=== PATIENT | female | born 1940 | race African-American/Black ===

== ENCOUNTER → 2016-09-30 | Outpatient (CLI) | payer OTHER, MEDICARE ==
[~2016-09-30] MED LIST: ASPEC81 PO; LORA-741 PO
[2016-09-30 09:10] LABS: HEMATOCRIT 43.7 % (37-47); MEAN CELL VOLUME 99.3 fL (80-100); MEAN CORPUSCULAR HEMOGLOBIN 31.8 pg (25-34); MEAN PLATELET VOLUME 11.9 fL (7.4-10.4); PLATELET COUNT 328 K/uL (130-400); WHITE BLOOD COUNT 6.51 K/uL (4.8-10.8)
[2016-09-30 09:26] LABS: ALT/SGPT 79 U/L (12-78); BLOOD UREA NITROGEN 24 mg/dl (7-18); BUN/CREATININE RATIO 23.7 (10-20); CARBON DIOXIDE 31 mmol/L (21-32); CHLORIDE 108 mmol/L (98-107); CHOLESTEROL 217 mg/dl (0-200); GLUCOSE 84 mg/dl (70-99); POTASSIUM 4.2 mmol/L (3.5-5.1); SODIUM 145 mmol/L (136-145); TRIGLYCERIDES 51 mg/dl (0-150); VERY LOW DENSITY LIPOPROT CALC 10 mg/dl
[2016-09-30 09:28] LABS: ALB/GLOB RATIO 0.9 (0.9-2); ALKALINE PHOSPHATASE 72 U/L (45-117); AST/SGOT 42 U/L (15-37); CHOLESTEROL/HDL RATIO 4.1; HDL CHOLESTEROL 53 mg/dl; LDL CHOLESTEROL CALCULATED 154 mg/dl
[2016-09-30 09:41] LABS: CALCIUM 9.4 mg/dl (8.5-10.1)
[2016-09-30 09:47] LABS: ESTIMATED AVERAGE GLUCOSE 131 mg/dl; HA1C FLAG Normal (Normal)
[2016-09-30 10:13] LABS: BASO % 0.3 %; BASO ABS # 0.02 K/uL (0-0.2); COMPLETE YES; ECHINOCYTES 1+; IG% 0.2 %; LYMPH % 53.9 %; LYMPH ABS # 3.51 K/uL (1.2-3.4); MONO % 9.1 %; NEUT % 30.5 %
== END | disposition home or self-care (01) ==
LOC: C.LABUPNIT 08:35
PROVIDERS: ATTEND Family Medicine
DX: E11.9 Type 2 diabetes mellitus without complications (principal); F02.81 Dementia in other diseases classified elsewhere, unspecified severity, with behavioral disturbance; F34.1 Dysthymic disorder

== ENCOUNTER → 2016-10-27 | Outpatient (CLI) | payer OTHER, MEDICARE ==
[2016-10-27 08:52] LABS: BASO % 0.3 %; BASO ABS # 0.02 K/uL (0-0.2); COMPLETE YES; EOS % 5.3 %; IG% 0.1 %; LYMPH % 49.3 %; LYMPH ABS # 3.41 K/uL (1.2-3.4); MEAN CELL VOLUME 96.1 fL (80-100); MEAN CORPUSCULAR HGB CONC 32.3 g/dl (32-36); MEAN PLATELET VOLUME 12.3 fL (7.4-10.4); MONO % 9.4 %; NEUT % 35.6 %; PLATELET COUNT 320 K/uL (130-400); RED BLOOD COUNT 4.06 M/uL (4.2-5.4); WHITE BLOOD COUNT 6.92 K/uL (4.8-10.8)
--- NOTE | 2016-10-29 12:20 | CODING QUERY NO DIAGNOSIS ---
TREATMENT RENDERED WITHOUT A DIAGNOSIS To promote full compliance with coding requirements relating to patient care, physician participation is requested in all cases of car stower uncertainty. Please assist us with providing a diagnosis/symptom for the test(s) below: A diagnosis/symptom was not documented on your Order. A valid diagnosis/symptom is required to bill all insurances. Please remember that we are unable to code a diagnosis of rule out, probable, possible, questionable, or suspected. Tests that require a diagnosis: DOS 10/27 * CBC DIAGNOSIS: * Uric Acid DIAGNOSIS: Provider Signature: Date: Thank you Ruth Ann Boyce Health Information Management Once completed, please kindly fax back to [phone] For questions please call [phone]
== END ==
LOC: C.LABUPNIT 08:39
PROVIDERS: ATTEND Family Medicine
DX: Z01.89 Encounter for other specified special examinations (principal)

== ENCOUNTER → 2016-12-31 | Outpatient (CLI) | payer OTHER, MEDICARE ==
[2016-12-31 09:16] LABS: ALT/SGPT 51 U/L (12-78); AST/SGOT 31 U/L (15-37); BLOOD UREA NITROGEN 18 mg/dl (7-18); BUN/CREATININE RATIO 18.8 (10-20); CALCIUM 9.2 mg/dl (8.5-10.1); CARBON DIOXIDE 26 mmol/L (21-32); CHLORIDE 109 mmol/L (98-107); CHOLESTEROL 197 mg/dl (0-200); CREATININE 0.93 mg/dl (0.60-1.20); GLUCOSE 77 mg/dl (70-99); SODIUM 141 mmol/L (136-145)
[2016-12-31 09:19] LABS: CHOLESTEROL/HDL RATIO 4.1; HDL CHOLESTEROL 48 mg/dl; LDL CHOLESTEROL CALCULATED 137 mg/dl; TRIGLYCERIDES 62 mg/dl (0-150); VERY LOW DENSITY LIPOPROT CALC 12 mg/dl
[2016-12-31 09:46] LABS: ESTIMATED AVERAGE GLUCOSE 123 mg/dl; HA1C FLAG Normal (Normal)
== END | disposition home or self-care (01) ==
LOC: C.LABUPNIT 08:48
PROVIDERS: ATTEND Nurse Practitioner Family
DX: E11.9 Type 2 diabetes mellitus without complications (principal)

== ENCOUNTER → 2017-05-13 | Outpatient (CLI) | payer OTHER, MEDICARE ==
[2017-05-13 08:46] LABS: BLOOD UREA NITROGEN 10 mg/dl (7-18); CALCIUM 8.7 mg/dl (8.5-10.1); CARBON DIOXIDE 25 mmol/L (21-32); CREATININE 0.74 mg/dl (0.60-1.20); GLUCOSE 87 mg/dl (70-99); POTASSIUM 3.1 mmol/L (3.5-5.1); SODIUM 140 mmol/L (136-145)
== END ==
LOC: C.LABUPNIT 08:17
PROVIDERS: ATTEND Nurse Practitioner Family
DX: E11.9 Type 2 diabetes mellitus without complications (principal); F33.8 Other recurrent depressive disorders

== ENCOUNTER → 2017-05-17 | Outpatient (CLI) | payer OTHER, MEDICARE | LOC: C.LAB 08:00 | PROVIDERS: ATTEND Nurse Practitioner Family | DX: E87.6 Hypokalemia (principal) ==

== ENCOUNTER → 2017-05-24 | Outpatient (CLI) | payer OTHER, MEDICARE | LOC: C.LABUPNIT 07:52 | PROVIDERS: ATTEND Nurse Practitioner Family | DX: E87.6 Hypokalemia (principal) ==

== ENCOUNTER → 2017-06-18 | Outpatient (CLI) | payer OTHER, MEDICARE ==
[2017-06-18 08:44] LABS: BLOOD UREA NITROGEN 12 mg/dl (7-18); CARBON DIOXIDE 25 mmol/L (21-32); CREATININE 0.79 mg/dl (0.60-1.20); GLUCOSE 85 mg/dl (70-99); POTASSIUM 4.1 mmol/L (3.5-5.1); SODIUM 138 mmol/L (136-145)
== END ==
LOC: C.LABUPNIT 08:21
PROVIDERS: ATTEND Nurse Practitioner Family
DX: Z01.89 Encounter for other specified special examinations (principal)

== ENCOUNTER → 2017-08-10 | Outpatient (CLI) | payer OTHER, MEDICARE ==
[2017-08-10 08:54] LABS: ALBUMIN 2.8 gm/dl (3.4-5.0); ALT/SGPT 151 U/L (12-78); AST/SGOT 85 U/L (15-37); BLOOD UREA NITROGEN 13 mg/dl (7-18); CALCIUM 8.9 mg/dl (8.5-10.1); CARBON DIOXIDE 25 mmol/L (21-32); CREATININE 0.85 mg/dl (0.60-1.20); GLUCOSE 81 mg/dl (70-99); SODIUM 141 mmol/L (136-145)
[2017-08-10 08:56] LABS: ALKALINE PHOSPHATASE 65 U/L (45-117); TOTAL PROTEIN 6.5 gm/dl (6.4-8.2)
[2017-08-10 09:29] LABS: HEMOGLOBIN A1C 6.2 % (4.5-5.6)
== END ==
LOC: C.LABUPNIT 07:53
PROVIDERS: ATTEND Nurse Practitioner Family
DX: E11.9 Type 2 diabetes mellitus without complications (principal); F02.81 Dementia in other diseases classified elsewhere, unspecified severity, with behavioral disturbance

== ENCOUNTER → 2017-08-18 | Outpatient (CLI) | payer OTHER, MEDICARE ==
[2017-08-18 08:57] LABS: ALT/SGPT 175 U/L (12-78); AST/SGOT 99 U/L (15-37)
== END ==
LOC: C.LABUPNIT 08:26
PROVIDERS: ATTEND Nurse Practitioner Family
DX: M62.81 Muscle weakness (generalized) (principal)

== ENCOUNTER → 2017-08-24 | Outpatient (CLI) | payer OTHER, MEDICARE ==
[2017-08-24 11:32] LABS: BLOOD UREA NITROGEN 14 mg/dl (7-18); CREATININE 0.88 mg/dl (0.60-1.20); GLUCOSE 65 mg/dl (70-99); POTASSIUM 4.1 mmol/L (3.5-5.1); SODIUM 139 mmol/L (136-145)
[2017-08-24 11:33] LABS: ALBUMIN 3.1 gm/dl (3.4-5.0); CALCIUM 9.1 mg/dl (8.5-10.1); CARBON DIOXIDE 24 mmol/L (21-32); TOTAL PROTEIN 6.8 gm/dl (6.4-8.2)
[2017-08-24 11:34] LABS: ALKALINE PHOSPHATASE 69 U/L (45-117); ALT/SGPT 96 U/L (12-78); AST/SGOT 52 U/L (15-37)
== END | disposition home or self-care (01) ==
LOC: C.LABUPNIT 09:14
PROVIDERS: ATTEND Nurse Practitioner Family
DX: E11.9 Type 2 diabetes mellitus without complications (principal)

== ENCOUNTER → 2017-11-10 | Outpatient (CLI) | payer OTHER, MEDICARE ==
[2017-11-10 10:09] LABS: BLOOD UREA NITROGEN 15 mg/dl (7-18); CALCIUM 8.6 mg/dl (8.5-10.1); CARBON DIOXIDE 24 mmol/L (21-32); CREATININE 0.91 mg/dl (0.60-1.20); GLUCOSE 72 mg/dl (70-99); POTASSIUM 3.9 mmol/L (3.5-5.1); SODIUM 140 mmol/L (136-145)
[2017-11-10 10:47] LABS: HEMOGLOBIN A1C 6.1 % (4.5-5.6)
== END ==
LOC: C.LABUPNIT 09:18
PROVIDERS: ATTEND Nurse Practitioner Family
DX: E11.9 Type 2 diabetes mellitus without complications (principal); F02.81 Dementia in other diseases classified elsewhere, unspecified severity, with behavioral disturbance

== ENCOUNTER → 2017-11-17 | Outpatient (CLI) | payer OTHER, MEDICARE ==
[2017-11-17 08:35] LABS: HEMATOCRIT 45.8 % (37-47); HEMOGLOBIN 14.3 g/dL (12.0-16.0); MEAN CELL VOLUME 97.2 fL (80-100); MEAN CORPUSCULAR HEMOGLOBIN 30.4 pg (25-34); MEAN CORPUSCULAR HGB CONC 31.2 g/dl (32-36); MEAN PLATELET VOLUME 12.5 fL (7.4-10.4); PLATELET COUNT 309 K/uL (130-400); RED CELL DISTRIBUTION WIDTH CV 13.6 % (11.5-14.5); RED CELL DISTRIBUTION WIDTH SD 48.4 fL (36.4-46.3); WHITE BLOOD COUNT 6.67 K/uL (4.8-10.8)
[2017-11-17 08:43] LABS: ALBUMIN 3.1 gm/dl (3.4-5.0); ALKALINE PHOSPHATASE 58 U/L (45-117); ALT/SGPT 38 U/L (12-78); AST/SGOT 33 U/L (15-37); BLOOD UREA NITROGEN 14 mg/dl (7-18); CALCIUM 9.3 mg/dl (8.5-10.1); CARBON DIOXIDE 28 mmol/L (21-32); CREATININE 0.87 mg/dl (0.60-1.20); GLUCOSE 77 mg/dl (70-99); POTASSIUM 4.1 mmol/L (3.5-5.1); SODIUM 140 mmol/L (136-145); TOTAL PROTEIN 6.3 gm/dl (6.4-8.2)
== END ==
LOC: C.LABUPNIT 08:00
PROVIDERS: ATTEND Nurse Practitioner Family
DX: E11.9 Type 2 diabetes mellitus without complications (principal); M62.81 Muscle weakness (generalized)

== ENCOUNTER 2019-08-29 20:55 | Inpatient (IN) ==
[2019-08-29] MEDS ORDERED: ALBUT/IPRATROP 3MG/0.5MG NEB 3 ML VIAL INH STA (21:21)
--- NOTE | 2019-08-29 21:31 | Emergency Department Note ---
History of Present Illness General Chief complaint: Shortness of Breath/Dyspnea Time Seen by Provider: 08/29/19 21:09 Source: RN notes reviewed Limitations: other (Dementia and nonverbal) History of Present Illness Provider complaint: Respiratory distress Onset (ago): hour(s) The history is severely limited as the patient is nonverbal and has dementia at baseline. I did obtain history from the charge nurse who spoke to [facility]. I also spoke to Molly who is the RN at [facility]. She stated that she was in good health throughout the day but an hour after supper they found her in her room and she was having respiratory distress with a respiratory rate in the 50s and a heart rate 129. She states she was diaphoretic and had an O2 saturation of 87%. She responded to oxygen via nasal cannula. They gave her DuoNeb and she had a heart rate of 109 and respiratory rate dropped to the 30s but she was still diaphoretic so they sent her here. She has had no fevers. There are no cases of COVID-19 at [facility]. Home Medications Home Medications Medication Instructions Recorded Confirmed Type acetaminophen 650 mg PO Q4H PRN MDD 3 GMS 08/29/19 08/29/19 History APAP/24 HOURS acetaminophen 650 mg NV Q6H PRN MDD 3 GMS 08/29/19 08/29/19 History APAP/24 HOURS bisacodyl [Dulcolax (bisacodyl)] 10 mg NV DIRECTED PRN 08/29/19 08/29/19 History ipratropium-albuterol 3 ml INHALATION Q6H PRN 08/29/19 08/29/19 History magnesium hydroxide [Milk Of 10 ml PO DAILY PRN 08/29/19 08/29/19 History Magnesia Concentrated] potassium chloride 20 meq PO DAILY 08/29/19 08/29/19 History sennosides [senna] 17.2 mg PO DAILY 08/29/19 08/29/19 History sodium phosphates [Fleet Enema] 118 ml NV DIRECTED PRN 08/29/19 08/29/19 History Allergies Allergy/AdvReac Type Severity Reaction Status Date / Time No Known Allergies Allergy Verified 08/29/19 22:07 Past Med/Surg History Medical History (Updated 08/30/19 @ 01:17 by Tigre Wyatt MD) Anxiety Dementia Osteoarthritis Social History (Updated 08/29/19 @ 21:34 by Tigre Wyatt MD) Current Living Situation: Assisted Smoking Status: Unknown if ever smoked Review of Systems See HPI for pertinent positives & negatives. Unobtainable due to cognitive status Physical Exam Vital Signs Vital Signs - 24 hr 08/29/19 21:15 08/29/19 21:23 08/29/19 21:38 Temperature 36.8 C Temperature Source Oral Pulse Rate 82 84 Pulse Rate [Finger] 82 Pulse Rate from SpO2 Sensor Respiratory Rate 20 18 25 H Respiratory Effort / Characteristics Non-Labored Spontaneous Respiratory Depth Normal Respiratory Pattern Regular Blood Pressure 144/67 H 144/67 H Blood Pressure [Right Arm] 144/67 H Blood Pressure Mean 92 99 Blood Pressure Mean [Right Arm] 92 Pulse Oximetry 97 Oxygen Delivery Method Room Air Room Air Room Air Sepsis Recent Fever Within 48 Hours No Sepsis New/Unexplained Change in Mental Status No Sepsis Action Taken by Nursing No Action Required 08/29/19 21:40 08/29/19 21:47 08/29/19 21:50 Temperature Temperature Source Pulse Rate 91 H 99 H Pulse Rate [Finger] 94 H Pulse Rate from SpO2 Sensor Respiratory Rate 20 21 24 Respiratory Effort / Characteristics Non-Labored Respiratory Depth Respiratory Pattern Blood Pressure Blood Pressure [Right Arm] Blood Pressure Mean Blood Pressure Mean [Right Arm] Pulse Oximetry 100 Oxygen Delivery Method Room Air Room Air Room Air Sepsis Recent Fever Within 48 Hours Sepsis New/Unexplained Change in Mental Status Sepsis Action Taken by Nursing 08/29/19 22:00 08/29/19 22:10 08/29/19 22:20 Temperature Temperature Source Pulse Rate 100 H 97 H 100 H Pulse Rate [Finger] Pulse Rate from SpO2 Sensor 100 H 97 H 100 H Respiratory Rate 38 H 22 18 Respiratory Effort / Characteristics Respiratory Depth Respiratory Pattern Blood Pressure 150/86 H Blood Pressure [Right Arm] Blood Pressure Mean 107 Blood Pressure Mean [Right Arm] Pulse Oximetry 99 99 100 Oxygen Delivery Method Room Air Room Air Room Air Sepsis Recent Fever Within 48 Hours Sepsis New/Unexplained Change in Mental Status Sepsis Action Taken by Nursing 08/29/19 22:30 08/29/19 22:31 08/29/19 22:40 Temperature Temperature Source Pulse Rate 99 H 97 H 101 H Pulse Rate [Finger] Pulse Rate from SpO2 Sensor 99 H 98 H 100 H Respiratory Rate 31 H 22 24 Respiratory Effort / Characteristics Respiratory Depth Respiratory Pattern Blood Pressure 136/104 H Blood Pressure [Right Arm] Blood Pressure Mean 118 Blood Pressure Mean [Right Arm] Pulse Oximetry 97 98 99 Oxygen Delivery Method Room Air Room Air Room Air Sepsis Recent Fever Within 48 Hours Sepsis New/Unexplained Change in Mental Status Sepsis Action Taken by Nursing Constitutional: Vital signs reviewed. Eyes: Pupils are equal round reactive to light. Conjunctiva are noninjected. ENT: Mucous membranes are dry. Neck supple without meningeal signs. Respiratory: Bilateral rhonchi and wheezing. Breath sounds are equal bilaterally. Cardiovascular: Regular rate and rhythm. No rubs or gallops. GI: Soft, nondistended and nontender. Bowel sounds are present. Musculoskeletal: No peripheral edema. No lower extremity tenderness. Integumentary: No cyanosis. or jaundice. Neurological: The patient is awake and alert. Does not follow any commands. Psychiatric: Unable to assess. Course Administered Medications Ioversol (Optiray 320 125ml) 125 ml IV ONCE PRN PRN Reason: Interaction Checking Stop: 09/03/19 00:21 Last Admin: 08/30/19 00:22 Dose: 119 ml Documented by: [id number] Discontinued Medications Albuterol (Duoneb) 3 ml INH NOW STA Stop: 08/29/19 21:22 Last Admin: 08/29/19 21:43 Dose: 3 ml Documented by: [id number] Medical Decision Making Differential Diagnosis Aspiration, pulmonary embolism, CHF, pneumonia, choking Medical Records Attestation: I reviewed the patient's medical records. I did perform a limited focused review of portions of the patient's old chart on the electronic medical record. The patient has had no recent pertinent visits to this hospital. Home Medications Current Medication List: was personally reviewed by me Laboratory Data Attestation: I reviewed the patient's lab results. Result diagrams: 08/29/19 22:16 08/29/19 22:16 Lab Results 08/29/19 08/29/19 08/29/19 Range/Units 22:16 22:16 22:16 WBC 9.60 (4.8-10.8) K/uL RBC 4.69 (4.2-5.4) M/uL Hgb 14.7 (12.0-16.0) g/dL Hct 46.2 (37-47) % MCV 98.5 (80-100) fL MCH 31.3 (25-34) pg MCHC 31.8 L (32-36) g/dL RDW Std Deviation 50.8 H (36.4-46.3) fL RDW Coeff of [place] 14.3 (11.5-14.5) % Plt Count 373 (130-400) K/uL MPV 11.2 H (7.4-10.4) fL Immature Gran % (Auto) 0.3 % Neut % (Auto) 80.0 % Lymph % (Auto) 13.9 % Luna % (Auto) 5.5 % Eos % (Auto) 0.2 % Baso % (Auto) 0.1 % Immature Gran # (Auto) 0.03 H (0.00-0.02) K/uL Neut # (Auto) 7.68 H (1.4-6.5) K/uL Lymph # (Auto) 1.33 (1.2-3.4) K/uL Luna # (Auto) 0.53 (0.11-0.59) K/uL Eos # (Auto) 0.02 (0-0.5) K/uL Baso # (Auto) 0.01 (0-0.2) K/uL PT 10.2 (9.0-12.0) Seconds INR 1.0 (0.9-1.1) APTT 22.6 (21.0-31.0) Seconds PTT Ratio 0.8 Sodium 142 (136-145) mmol/L Potassium 3.8 (3.5-5.1) mmol/L Chloride 109 H (98-107) mmol/L Carbon Dioxide 23 (21-32) mmol/L Anion Gap 10.0 (3-11) BUN 20 H (7-18) mg/dl Creatinine 1.08 (0.6-1.2) mg/dl Est Cr Clr Drug Dosing 42.6 ml/min Est GFR ( Amer) 56.5 Est GFR (Non-Af Amer) 48.8 BUN/Creatinine Ratio 18.7 (10-20) Glucose 199 H (70-99) mg/dl Calcium 9.6 (8.5-10.1) mg/dl Total Bilirubin 0.2 (0.2-1) mg/dl AST 26 (15-37) U/L ALT 39 (12-78) U/L Alkaline Phosphatase 79 (45-117) U/L Troponin I < 0.015 (0-0.045) ng/ml NT-Pro-B Natriuret Pep 118 (0-1800) pg/ml Total Protein 7.4 (6.4-8.2) gm/dl Albumin 3.2 L (3.4-5.0) gm/dl Globulin 4.1 H (2.5-4.0) gm/dl Albumin/Globulin Ratio 0.8 L (0.9-2) Influenza Type A (PCR) (Neg) Influenza Type B (PCR) (Neg) 08/29/19 Range/Units 22:20 WBC (4.8-10.8) K/uL RBC (4.2-5.4) M/uL Hgb (12.0-16.0) g/dL Hct (37-47) % MCV (80-100) fL MCH (25-34) pg MCHC (32-36) g/dL RDW Std Deviation (36.4-46.3) fL RDW Coeff of [place] (11.5-14.5) % Plt Count (130-400) K/uL MPV (7.4-10.4) fL Immature Gran % (Auto) % Neut % (Auto) % Lymph % (Auto) % Luna % (Auto) % Eos % (Auto) % Baso % (Auto) % Immature Gran # (Auto) (0.00-0.02) K/uL Neut # (Auto) (1.4-6.5) K/uL Lymph # (Auto) (1.2-3.4) K/uL Luna # (Auto) (0.11-0.59) K/uL Eos # (Auto) (0-0.5) K/uL Baso # (Auto) (0-0.2) K/uL PT (9.0-12.0) Seconds INR (0.9-1.1) APTT (21.0-31.0) Seconds PTT Ratio Sodium (136-145) mmol/L Potassium (3.5-5.1) mmol/L Chloride (98-107) mmol/L Carbon Dioxide (21-32) mmol/L Anion Gap (3-11) BUN (7-18) mg/dl Creatinine (0.6-1.2) mg/dl Est Cr Clr Drug Dosing ml/min Est GFR ( Amer) Est GFR (Non-Af Amer) BUN/Creatinine Ratio (10-20) Glucose (70-99) mg/dl Calcium (8.5-10.1) mg/dl Total Bilirubin (0.2-1) mg/dl AST (15-37) U/L ALT (12-78) U/L Alkaline Phosphatase (45-117) U/L Troponin I (0-0.045) ng/ml NT-Pro-B Natriuret Pep (0-1800) pg/ml Total Protein (6.4-8.2) gm/dl Albumin (3.4-5.0) gm/dl Globulin (2.5-4.0) gm/dl Albumin/Globulin Ratio (0.9-2) Influenza Type A (PCR) Neg for Influ A (Neg) Influenza Type B (PCR) Neg for Influ B (Neg) Imaging Data Radiologist's Impression: CTA CHEST: No PE or aortic dissection. Emphysema and bronchitis. Occluded lower lobe bronchi resulting in basilar atelectasis. 2.4 cm right middle lobe nodule, concerning for malignancy. Atypical bowel gas pattern in the upper abdomen. Consider upright and bilateral decubitus radiographs to exclude free air. Radiologist: Chilango Clayton M.D. Study ready at 00:25 and initial results transmitted at 00:42 XR chest 1V portable HISTORY: 78 years-old Female Dyspnea acute shortness of breath COMPARISON: Chest radiographs 01/06/2012 TECHNIQUE: Supine AP view of the chest FINDINGS: Limited exam secondary to positioning with rotation. Cardiac silhouette is upper limits of normal in size. Asymmetric right hilar opacity may be projectional. Chronic interstitial coarsening. No pneumothorax, pleural effusion, overt pulmonary edema or airspace consolidation typical for pneumonia. Degenerative changes of the shoulders and spine. Lucency of the abdominal left upper quadrant is suggestive of air within the colon. IMPRESSION: 1. Limited exam secondary to positioning. 2. No acute process identified. ACT 112: Negative or not required by law. The above report was generated using voice recognition software. It may contain grammatical, syntax or spelling errors. Electronically signed by: Darryn Shelton M.D. 08/29/2019 10:40 PM ECG Data Attestation: I personally reviewed and interpreted this ECG as follows: Indication: + SOB/dyspnea Rate (beats per minute): 94 ECG Intervals/blocks: + Incomplete right bundle branch block ECG [place]: + Left axis deviation ECG ST segments: no ST elevation ECG Findings: no PVCs Blood Pressure Blood Pressure Findings: Elevated blood pressure Blood Pressure Disposition: further management by hospitalist MDM Narrative I did evaluate the patient as noted above. I did obtain history from the charge nurse as well as the nurse from heart side. Apparently patient had an episode of sudden shortness of breath with hypoxemia, tachycardia and tachypnea. IV access was established. I did treat the patient with a DuoNeb. She has significant rhonchi and wheezing. I did place an order for continuous cardiac monitoring. The monitor showed sinus tachycardia with a rate of 111. I did order and personally review the patient's 12-lead EKG as described above. She has no signs of acute ischemia. I did order and personally reviewed the images of the patient's chest x-ray as described above. Chest x-ray is unremarkable. Flu PCR testing is negative. I did order and review the patient's blood work as noted in the electronic medical record. CBC is unremarkable without leukocytosis or anemia. Troponin is negative. Electrolytes are unremarkable. I did order a CT angiogram of the chest to rule out PE given the sudden onset of her symptoms. I did review the images myself as well as the radiology report as described above. There is no evidence of pulmonary embolism. She does appear to have a possible malignancy in the right middle lobe. She also has emphysematous changes. I did reassess the patient. She continues to have wheezing although her O2 saturation is 100%. She does remain tachypneic and so I did feel hospitalization was warranted. I did treat her with Solu-Medrol IV. I did discuss the case with the hospitalist and top case assembler. Impression & Plan Hypoxia, Respiratory distress, COPD exacerbation Discharge Plan Visit Data Chief Complaint: Shortness of Breath/Dyspnea ED Provider: Tigre Wyatt Discharge Problem: Hypoxia, Respiratory distress, COPD exacerbation Patient Disposition: Being Evaluated by Hospitalist Condition: Good Forms Stand Alone Forms: [facility] Prescriptions Prescriptions: No Action sennosides [senna] 8.6 mg Tablet 17.2 mg PO DAILY RF: 0 potassium chloride 10 mEq capsule, extended release 20 meq PO DAILY RF: 0 acetaminophen 325 mg Tablet 650 mg PO Q4H MDD 3 GMS APAP/24 HOURS PRN (Reason: Fever Or Pain) RF: 0 acetaminophen 650 mg Suppository 650 mg NV Q6H MDD 3 GMS APAP/24 HOURS PRN (Reason: Fever) RF: 0 ipratropium-albuterol 0.5 mg-3 mg(2.5 mg base)/3 mL Solution For Nebulization 3 ml INHALATION Q6H PRN (Reason: Cough/Congestion) RF: 0 bisacodyl [Dulcolax (bisacodyl)] 10 mg Suppository 10 mg NV DIRECTED PRN (Reason: Constipation) RF: 0 Fleet Enema 19-7 gram/118 mL Enema 118 ml NV DIRECTED PRN (Reason: Constipation) RF: 0 magnesium hydroxide [Milk Of Magnesia Concentrated] 2,400 mg/10 mL Suspension 10 ml PO DAILY PRN (Reason: Constipation) RF: 0 Referrals Referrals: [facility] [Primary Care Provider] -
[2019-08-29 22:37] LABS: Basophils # (auto) 0.01 K/uL (0-0.2); Basophils % (auto) 0.1 %; Eosinophils # (auto) 0.02 K/uL (0-0.5); Eosinophils % (auto) 0.2 %; Hematocrit (blood only) 46.2 % (37-47); Hemoglobin 14.7 g/dL (12.0-16.0); Immature Granulocytes # (auto) 0.03 K/uL (0.00-0.02); Immature Granulocytes % (auto) 0.3 %; Lymphocytes # (auto) 1.33 K/uL (1.2-3.4); Lymphocytes % (auto) 13.9 %; Mean Corpuscular Hemoglobin 31.3 pg (25-34); Mean Corpuscular Hgb Conc 31.8 g/dL (32-36); Mean Corpuscular Volume 98.5 fL (80-100); Mean Platelet Volume 11.2 fL (7.4-10.4); Monocytes # (auto) 0.53 K/uL (0.11-0.59); Monocytes % (auto) 5.5 %; Neutrophils # (auto) 7.68 K/uL (1.4-6.5); Platelet Count 373 K/uL (130-400); RDW Coefficient of Variation 14.3 % (11.5-14.5); RDW Standard Deviation 50.8 fL (36.4-46.3); Red Blood Count 4.69 M/uL (4.2-5.4)
--- NOTE | 2019-08-29 22:41 | XRay Report ---
XR chest 1V portable HISTORY: 78 years-old Female Dyspnea acute shortness of breath COMPARISON: Chest radiographs 01/06/2012 TECHNIQUE: Supine AP view of the chest FINDINGS: Limited exam secondary to positioning with rotation. Cardiac silhouette is upper limits of normal in size. Asymmetric right hilar opacity may be projectional. Chronic interstitial coarsening. No pneumot horax, pleural effusion, overt pulmonary edema or airspace consolidation typical for pneumonia. Degen erative changes of the shoulders and spine. Lucency of the abdominal left upper quadrant is suggestiv e of air within the colon. IMPRESSION: 1. Limited exam secondary to positioning. 2. No acute process identified. ACT 112: Negative or not required by law. The above report was generated using voice recognition software. It may contain grammatical, syntax o r spelling errors. Electronically signed by: Darryn Shelton M.D. 08/29/2019 10:40 PM
[2019-08-29 22:48] LABS: Partial Thromboplastin Ratio 0.8; Partial Thromboplastin Time 22.6 Seconds (21.0-31.0); Prothrombin Time 10.2 Seconds (9.0-12.0)
[2019-08-29 22:54] LABS: Alanine Aminotransferase 39 U/L (12-78); Albumin Level 3.2 gm/dl (3.4-5.0); Aspartate Aminotransferase 26 U/L (15-37); BUN Creatinine Ratio 18.7 (10-20); Blood Urea Nitrogen 20 mg/dl (7-18); Calcium 9.6 mg/dl (8.5-10.1); Carbon Dioxide 23 mmol/L (21-32); Chloride 109 mmol/L (98-107); Creatinine Clr Calc Pharmacy 42.6 ml/min; Est GFR (African American) 56.5; Est GFR (Non-African American) 48.8; Glucose 199 mg/dl (70-99); Potassium 3.8 mmol/L (3.5-5.1); Sodium 142 mmol/L (136-145)
[2019-08-29 22:59] LABS: Albumin Globulin Ratio 0.8 (0.9-2); Alkaline Phosphatase 79 U/L (45-117); Bilirubin,Total 0.2 mg/dl (0.2-1); Globulin 4.1 gm/dl (2.5-4.0); NT Pro B Type Natriuretic Pept 118 pg/ml (0-1800); Total Protein 7.4 gm/dl (6.4-8.2); Troponin I < 0.015 ng/ml (0-0.045)
[2019-08-29 23:06] LABS: Influenza A virus by PCR Neg for Influ A (Neg); Influenza B virus by PCR Neg for Influ B (Neg)
[2019-08-30] MEDS ORDERED: OPTIRAY 320 125ml IV PRN (00:22)
[2019-08-30] MEDS ORDERED: methylPREDNISolone 125 MG/2 ML VIAL IV STA (01:01)
[2019-08-30 02:12] LABS: Appearance Urine Clear (Clear); Bilirubin Urine Negative (Negative); Blood Urine Negative (Negative); Color Urine Yellow; Glucose Urine UA 2+ (Negative); Ketones Urine Negative (Negative); Leukocyte Esterase Urine Negative (Negative); Nitrite Urine Negative (Negative); Protein Urine Negative (Negative); Specific Gravity Urine > 1.045 (1.000-1.030); Urobilinogen Urine Negative (Negative)
[2019-08-30] MEDS ORDERED: bisacodyL 10 MG SUPP PR PRN (05:39)
[2019-08-30] MEDS ORDERED: NITROGLYCERIN SL 0.4 MG/TAB TAB SL PRN (05:39)
[2019-08-30] MEDS ORDERED: SOD PHOSPHATE/SOD BIPHOSPHATE ENEMA 132 ML BTL PR PRN (05:39)
[2019-08-30] MEDS ORDERED: ACETAMINOPHEN 325 MG TAB PO PRN (05:39)
[2019-08-30] MEDS ORDERED: ONDANSETRON INJ 2 MG/ML 2 ML VIAL IV PRN (05:39)
[2019-08-30] MEDS ORDERED: ALBUT/IPRATROP 3MG/0.5MG NEB 3 ML VIAL INH PRN (05:39)
--- NOTE | 2019-08-30 06:40 | History and Physical Report ---
DATE OF ADMISSION: 08/30/2019 CHIEF COMPLAINT: Shortness of breath. HISTORY OF PRESENT ILLNESS: A 78-year-old female, [facility] resident, with past medical history significant for severe dementia, nonverbal, history of malignant neoplasm of bladder, status post surgery, history of dyspepsia and impaired fasting glucose, was brought in because of shortness of breath. Apparently, the patient was doing okay until this episode happened when after eating supper she was found in the room having respiratory distress and tachycardia. She was diaphoretic and oxygen sat at 87%. She was placed on nasal cannula and was sent in here.There was no fever, no chills, no cough until this episode happened. No nausea, no vomiting, no diarrhea. In the ER when she came in, she seemed back to her baseline and she is saturating fine. Currently, all the labs are okay. CAT scan done in the ER, preliminary report shows emphysema and lower lobe rhonchi, bibasilar atelectasis and 2.4 cm right middle lobe nodule concerning for malignancy.She has a history of smoking as per records. Currently resting comfortably and hemodynamically stable. Not able to get any history from the patient. The patient is sleeping, not arousable and also she is nonverbal. History got from ER and also talked to the [facility]. ALLERGIES: No known drug allergies. PAST MEDICAL HISTORY: As mentioned above. PAST SURGICAL HISTORY: Cystoscopy, removal of bladder tumor. MEDICATIONS: Currently she is on Tylenol 650 mg p.o. q. 4 hours p.r.n., Dulcolax 10 mg per rectal p.r.n., DuoNebs q. 6 hours p.r.n., milk of magnesia 10 mL p.o. daily p.r.n., potassium chloride 20 mEq p.o. daily, Senokot 17.2 mg p.o. daily, Fleet enema daily p.r.n. FAMILY HISTORY: Significant for mother had colon cancer, dementia. Father had kidney failure. Maternal grandmother had breast cancer. SOCIAL HISTORY: Currently a resident of [facility]. Former smoker, smoked 1 pack a day for 14 years. History of occasional alcohol use, no drug use. REVIEW OF SYMPTOMS: Unobtainable. The patient is nonverbal. PHYSICAL EXAMINATION: VITAL SIGNS: Temperature 36.8, pulse 67, respiratory rate 14, blood pressure 134/69, oxygen 100% on room air. HEENT: Atraumatic. She is sleeping and not able to arise. NECK: No neck masses seen. CARDIOVASCULAR: S1, S2 heard, regular rate and rhythm, no murmur, no gallop. RESPIRATORY SYSTEM: Normal AP diameter. No accessory muscle use. Could not hear any wheezing or crackles. ABDOMEN: Soft, bowel sounds present. No distention. CENTRAL NERVOUS SYSTEM: Currently drowsy, nonverbal. EXTREMITIES: No edema, no erythema seen. LABORATORY DATA: WBC 9.6, hemoglobin 14.7, hematocrit 46.2, platelets 373. PT 10.2, INR 1, APTT 22.6. Sodium 142, potassium 3.8, chloride 109, bicarbonate 23, BUN 20, creatinine 1.08, serum glucose 199, calcium 9.6, total bilirubin 0.2, AST 26, ALT 39, alkaline phosphatase 110. Troponin I less than 0.015. BNP 118. Urinalysis +2 glucose. Influenza A and B negative. Chest x-ray limited exam. IMAGING: CT of the chest, no PE or aortic dissection, emphysema and bronchitis, occluded lower lobe bronchus resulting in basilar atelectasis, 2.4 cm right middle lobe nodules concerning for malignancy. ASSESSMENT AND PLAN: This 78-year-old female who presents with acute shortness of breath. 1. Shortness of breath, most likely Copd ex Ct chest showed no pulmonary embolism or dissection, but lung nodule and emphysema. Has history of smoking, will treat her chronic obstructive pulmonary disease exacerbation with IV Solu-Medrol 40 mg daily, IV Rocephin, IV doxycycline, nebs around the clock and p.r.n. and monitor. 2. Lung mass, history of smoking, we will consult pulmonary. 3. History of impaired fasting glucose. Follow the HbA1c levels and nutrition. The patient is on soft diet as per jail and she needs help with feeding. 4. Ambulatory status is mostly bedbound. 5. Severe dementia, nonverbal. 6. History of bladder tumor status post surgery. 7. Deep venous thrombosis prophylaxis, sequential compression devices for now. 7. Disposition: Close monitoring in med/surg tele. Code status DNR as per discussion with the [facility] Expect to discharge back to [facility] when stable. Social Service to help with discharge planning. [facility]
[2019-08-30] MEDS: ALBUT/IPRATROP 3MG/0.5MG NEB 3 ML VIAL NEB SCH ×2 (07:21→11:00)
[2019-08-30] MEDS ORDERED: cefTRIAXone SODIUM 1,000 MG in DEXTROSE 5% 50 ML IV SCH (08:00)
[2019-08-30] MEDS ORDERED: methylPREDNISolone 40 MG in SYRINGE 0 ML IV SCH (08:00)
[2019-08-30] MEDS: DOXYCYCLINE HYCLATE 100 MG in DEXTROSE 5% 100 ML IV SCH ×2 (08:29→19:53)
[2019-08-30] MEDS: POTASSIUM CHLORIDE 20 MEQ TABCR PO SCH ×2 (08:29→09:32)
[2019-08-30] MEDS: SENNA 8.6 MG TAB PO SCH ×2 (08:29→09:32)
--- NOTE | 2019-08-30 08:39 | CT Scan Report ---
CT angio chest PE protocol CLINICAL HISTORY: 78 years-old Female presenting with shortness of breath, clinical concern for pulmo nary embolus. TECHNIQUE: Multidetector CT angiography of the chest was performed after administration of intravenou s contrast. 3-D volumetric and/or maximum intensity projection (MIP) images were subsequently reconst ructed for review. IV contrast: 119 mL of Optiray 320. One or more dose lowering techniques were used consistent with the principles of ALARA (as low as reasonably achievable), including automatic expos ure control, mA or kV adjustment to individual patient size, and/or use of iterative reconstruction. COMPARISON: Chest x-ray from the previous day. CT DOSE (mGy.cm): The estimated cumulative dose is 296.72 mGy.cm. FINDINGS: In Home Aide topogram: Unremarkable. Pulmonary vasculature: The study is suboptimal for the assessment of the pulmonary vascular tree secondary to respiratory mo tion artifact. No filling defect within the pulmonary arteries to suggest embolus. Main pulmonary art fabienne normal in size of the right and left vein pulmonary arteries are engorged. No flattening of the i nterventricular septum. No intracardiac filling defect. No reflux of contrast into the hepatic veins. Remaining chest: Soft tissues: Normal thyroid and thoracic inlet. No axillary, supraclavicular, mediastinal, or hilar lymphadenopathy. Atherosclerosis of the aorta. Normal heart size. No pericardial or pleural effusion. Upper abdomen normal. Lungs and airways: No pneumothorax. The right lower lobe bronchus is almost entirely occluded as are the right lower lobe segmental bronchi with low-density material likely mucous plugging. Lesser degre e of mucous plugging in the right middle lobe bronchus. Pulmonary arteries are not significantly enla rged relative to adjacent bronchi. No interlobular septal thickening. Moderate centrilobular this barbara ma. Dependent groundglass opacities likely atelectasis. There is also a solid spiculated right middle lobe nodule extending to the pleura measuring 2.8 cm in diameter. Musculoskeletal: Degenerative changes of the spine. No destructive osseous lesion. IMPRESSION: 1. No evidence of pulmonary embolus. 2. Solid spiculated 2.8 cm right middle lobe mass highly concerning for primary bronchogenic neoplas m. Tissue sampling advised. 3. Moderate emphysema with mucous plugging in the right lower lobe and to a lesser extent the right middle lobe. The report will be called/faxed according to standard departmental protocol. ACT 112: Negative or not required by law. Electronically signed by: Billy Colin M.D. 08/30/2019 8:37 AM
[2019-08-30] MEDS ORDERED: SENNA 8.6 MG TAB PO SCH (09:00)
[2019-08-30] MEDS ORDERED: POTASSIUM CHLORIDE 20 MEQ TABCR PO SCH (09:00)
--- NOTE | 2019-08-30 16:23 | Electrocardiogram Report ---
Test Reason : Blood Pressure : / mmHG Vent. Rate : 094 BPM Atrial Rate : 094 BPM P-R Int : 130 ms QRS Dur : 102 ms QT Int : 368 ms P-R-T Axes : 043 -37 042 degrees QTc Int : 460 ms Poor data quality, interpretation may be adversely affected Normal sinus rhythm Possible Left atrial enlargement Left axis deviation Low voltage QRS Incomplete right bundle branch block Abnormal ECG When compared with ECG of 08-JAN-2012 06:33, Vent. rate has increased BY 42 BPM Incomplete right bundle branch block is now Present Confirmed by Samson Hearn ([id number]) on 08/30/2019 4:23:12 PM Referred By: [facility] Confirmed By:Shawn Hearn
--- NOTE | 2019-08-30 17:23 | Pulmonary Consultation ---
Date of Consultation August 30, 2019 Assessment & Plan (1) Alzheimers disease: Long discussion with patient's Sister Kimberly Nonverbal for least 1 year Sister stressed importance of palliative care but continue treat conservatively DNR/DNI Continue supportive care (2) Right lower lobe pulmonary nodule: Patient with neoplasm of the bladder Discussed biopsy options with the sister as the patient is nonverbal Sister emphatic that no biopsies or invasive procedures should be completed Continue supportive care from a pulmonary perspective Sister states that patient would not want chemotherapy or surgical intervention if needed (3) Mucus plugging of bronchi: Most likely with component of aspiration and weak cough secondary to Alzheimer's Continue pulmonary toilet with suctioning available Patient sounds generally clear on auscultation and is currently oxygenating at 95% SaO2 on room air Conservative treatment No role for bronchoscopy at this time Thank you very much for including us in the care of this patient. We will sign off from a pulmonary perspective at this time. Please feel free to reconsult as needed Please refer to Dr. Dunbar's addendum for further recommendations. Supervising Physician Co-Signing Physician Notes Pt seen and examined with ALFREDO Kruger. Agree with a/p as noted aside for any ad ditions/exceptions noted: Patient is bedbound and non-verbal and apparently has been for sometime. Presenting with resp failure from [facility]. Found to have RLL mucous plug and RML nodule. Family is indicating they would prefer a more palliative and conservative approach. Agree with this given the patient's underlying condition. Recommend aspiration precautions, percussive therapy as tolerated, keeping HOB> 30 degrees. Empiric abx reasonable. COVID PCR negative. Recommend palliative care involvement. Pulm to sign off. Please call with questions. Thanks for the consult. History of Present Illness Attending Physician: Kishor Menendez MD History of Present Illness Attending: Dr. Dunbar This is a 78-year-old female with past medical history including malignant neoplasm bladder, Alzheimer's disease, nonverbal for the past 1 year, dyspepsia, impaired fasting glucose, cachexia, failure to thrive. The patient resides at the [facility] and was referred for evaluation admission secondary to shortness of breath. The patient has no documented hypoxia and is 96% SaO2 on room air at the time of my examination. We are consulted to evaluate patient for a spiculated 2.8 cm right middle lobe nodule as well as mucous plugging from CT scan. Patient is nonverbal at the time of my examination and does not track with her eyes. Occasionally she will chuckle but has no verbal response. She does not follow any simple commands and is unable to provide any history. The patient has never been and has no children. Her parents are both . I did speak with the patient's Sister Kimberly Hoyt who is the patient's primary contact. Ms. Hoyt indicated that the patient has Alzheimer's and has been nonverbal for at least the past year. She does not recognize her sister or other family members. The patient has been noted to have increased shortness of breath over the last 3 to 4 months and has been noticed to have a wet hacking cough after eating. I discussed the patient's CT findings with the sister. She was emphatic that the patient would not want anything done other than very conservative treatment. She is not interested in biopsy of the right middle lobe nodule and states that her sister would not tolerate any invasive procedures. She was emphatic that she should be a DNR/DNI and that it was okay to treat but no heroic should be applied. She confirmed that her sister quit smoking approximately 4 years ago. Prior to that she has been a lifelong adult smoker of at least 1 pack/day. She worked at [employer] in [employer] services. There is a long family history of Alzheimer's as well as various malignancies. Prior to terminating the discussion, I reemphasized that this most likely was a malignant area in the right middle lobe and that if undiagnosed or untreated it could lead to worsening cancer and . Sister is aware and assess to focus on palliation and treat conservatively. Allergies Allergy/AdvReac Type Severity Reaction Status Date / Time No Known Allergies Allergy Verified 08/29/19 22:07 Home Medications Home Medications Medication Instructions Recorded Confirmed Type acetaminophen 650 mg PO Q4H PRN MDD 3 GMS 08/29/19 08/29/19 History APAP/24 HOURS acetaminophen 650 mg MI Q6H PRN MDD 3 GMS 08/29/19 08/29/19 History APAP/24 HOURS bisacodyl [Dulcolax (bisacodyl)] 10 mg MI DIRECTED PRN 08/29/19 08/29/19 History ipratropium-albuterol 3 ml INHALATION Q6H PRN 08/29/19 08/29/19 History magnesium hydroxide [Milk Of 10 ml PO DAILY PRN 08/29/19 08/29/19 History Magnesia Concentrated] potassium chloride 20 meq PO DAILY 08/29/19 08/29/19 History sennosides [senna] 17.2 mg PO DAILY 08/29/19 08/29/19 History sodium phosphates [Fleet Enema] 118 ml MI DIRECTED PRN 08/29/19 08/29/19 History Patient History Medical History (Updated 08/30/19 @ 18:15 by Kishor Menendez MD) Alzheimers disease Anxiety Bladder cancer Dementia History of tobacco abuse Osteoarthritis Family History (Updated 08/30/19 @ 17:08 by Jakob Kruger PA-C) Other Medical history non-contributory Social History (Updated 08/30/19 @ 17:15 by Jakob Kruger PA-C) Communication Ability: Unable Communication Ability Comment: Nonverbal for at least the past year secondary to Alzheimer's disease Outside Production Inspector Required: No Current Living Situation: Shelter current occupational status: retired current occupation: Retired from [employer] services at [employer] Smoking Status: Former smoker Tobacco Type: cigarettes ; Age Started Using Tob acco: 17 ; Age Quit Using Tobacco: 74 ; packs per day: 1 ; Number of Years Since Quit: 4 ; Hx Alcohol Use: No Hx Substance Use: No Review of Systems Review of Systems: Unobtainable due to cognitive status Physical Exam Physical Exam: GENERAL : No acute distress. Nonverbal EYES: No icterus, gaze conjugate. Pupils do not track NOSE: No evidence of epistaxis. MOUTH: No lesions or candidiasis NECK: Supple LUNGS: Initially lungs were clear to auscultation bilaterally with some decrease in the right base. Patient was in the midst of a swallow eval at bedside and immediately following she coughed and then there appeared to be rhonchi in the right upper lobe. HEART: Regular, rate controlled ABDOMEN: Soft, NT, ND, BS Present EXTREMITIES: No LE edema, pedal pulses intact NEURO: Awake. Nonverbal. Eyes do not track. Pupils equal round and reactive to light. Lower extremities are contracted. Results & Data Results & Data ([facility]) Vital Signs (Past 12 Hours) Vital Signs Temp Pulse Pulse Resp BP Pulse Ox 08/30/19 14:10 36.8 C 88 18 173/75 H 95 08/30/19 11:37 68 08/30/19 10:57 36.7 C 61 16 126/70 94 08/30/19 09:00 67 08/30/19 07:27 37.0 C 70 20 123/72 94 08/30/19 07:21 77 18 94 08/30/19 05:41 36.9 C 71 18 125/70 95 Laboratory Results INR 1.0 (0.9-1.1) 08/29/19 22:16 08/29/19 22:16 08/29/19 22:[address] angio chest PE protocol CLINICAL HISTORY: 78 years-old Female presenting with shortness of breath, clinical concern for pulmonary embolus. TECHNIQUE: Multidetector CT angiography of the chest was performed after administration of intravenous contrast. 3-D volumetric and/or maximum intensity projection (MIP) images were subsequently reconstructed for review. IV contrast: 119 mL of Optiray 320. One or more dose lowering techniques were used consistent with the principles of ALARA (as low as reasonably achievable), including automatic exposure control, mA or kV adjustment to individual patient size, and/or use of iterative reconstruction. COMPARISON: Chest x-ray from the previous day. CT DOSE (mGy.cm): The estimated cumulative dose is 296.72 mGy.cm. FINDINGS: Manager Occupational topogram: Unremarkable. Pulmonary vasculature: The study is suboptimal for the assessment of the pulmonary vascular tree secondary to respiratory motion artifact. No filling defect within the pulmonary arteries to suggest embolus. Main pulmonary artery normal in size of the right and left vein pulmonary arteries are engorged. No flattening of the interventricular septum. No intracardiac filling defect. No reflux of contrast into the hepatic veins. Remaining chest: Soft tissues: Normal thyroid and thoracic inlet. No axillary, supraclavicular, mediastinal, or hilar lymphadenopathy. Atherosclerosis of the aorta. Normal heart size. No pericardial or pleural effusion. Upper abdomen normal. Lungs and airways: No pneumothorax. The right lower lobe bronchus is almost entirely occluded as are the right lower lobe segmental bronchi with low-density material likely mucous plugging. Lesser degree of mucous plugging in the right middle lobe bronchus. Pulmonary arteries are not significantly enlarged relative to adjacent bronchi. No interlobular septal thickening. Moderate centrilobular this edema. Dependent groundglass opacities likely atelectasis. There is also a solid spiculated right middle lobe nodule extending to the pleura measuring 2.8 cm in diameter. Musculoskeletal: Degenerative changes of the spine. No destructive osseous lesion. IMPRESSION: 1. No evidence of pulmonary embolus. 2. Solid spiculated 2.8 cm right middle lobe mass highly concerning for primary bronchogenic neoplasm. Tissue sampling advised. 3. Moderate emphysema with mucous plugging in the right lower lobe and to a lesser extent the right middle lobe. The report will be called/faxed according to standard departmental protocol. ACT 112: Negative or not required by law. Electronically signed by: Billy Colin M.D. 08/30/2019 8:37 AM PG Care Time/CCT Total # of Minutes Spent Total Time Spent with Patient: Total time spent is greater than 50% in coordination of care (as documented) at patient's floor/unit and/or counseling patient: 60 minutes including discussion with primary hospitalist team, Sister Kimberly, and nursing. [place] [address] Initial Inpt Care Lvl 3 Patient Type New Diagnoses Alzheimers disease G30.9; F02.80 Right lower lobe pulmonary nodule R91.1 Mucus plugging of bronchi J98.09
--- NOTE | 2019-08-30 18:14 | Hospitalist Progress Note ---
Date of Service August 30, 2019 Assessment & Plan (1) Acute respiratory failure with hypoxia: likely secondary to aspiration event back to room air change Ceftri to Clindamycin Speech Therapy recommends strict NPO for now, re-eval daily Pulm consulted- recommend Nebs 2. Lung mass, history of smoking - no intervention at this point after discussion with sister by Pulmonary service 3. History of impaired fasting glucose. - a1c pending The patient is on soft diet as per [facility] and she needs help with feeding. 4. Ambulatory status is mostly bedbound. 5. Severe dementia, nonverbal. 6. History of bladder tumor status post surgery. 7. Deep venous thrombosis prophylaxis, sequential compression devices for now. 7. Disposition: Expect to discharge back to [facility] when stable. Social Service to help with discharge planning. Admission and Anticipated Discharge Date Admission Date: August 30, 2019 Subjective ff up for hypoxia seen resting in bed, on room air, not in distress patient is awake but non verbal, does not respond to verbal stimuli or commands does not turn to examiner ROS difficult to perform due to above no other signs noted per staff training and development manager Review of Systems Review of Systems: All systems reviewed & are unremarkable except as noted in HPI & below Physical Exam Physical Exam: General- awake but non verbal no accessory muscle use or effort when breathing Head- atraumatic Eyes- PERRL, anicteric ENT- oropharynx clear Neck- supple, no JVD, no adenopathy, no thyromegaly; carotids +2/2, no bruits appreciated Lungs- clear to auscultation bilaterally, no rales/wheezes Heart- normal rate, regular rhythm; no murmur, no gallop, no rub appreciated Abdomen- normal bowel sounds, nondistended, soft, nontender, no masses or hepatosplenomegaly Extremities- no pretibial edema, no calf tenderness; peripheral pulses intact Neuro-awake but non verbal no gross focal neuro deficits noted full neuro exam difficult to perform due to patient's cognitive status Skin- warm & dry Results & Data Results & Data ([facility]) Vital Signs (Past 12 Hours) Vital Signs Temp Pulse Pulse Resp BP Pulse Ox 08/30/19 14:10 36.8 C 88 18 173/75 H 95 08/30/19 11:37 68 08/30/19 10:57 36.7 C 61 16 126/70 94 05/20/20 09:00 67 08/30/19 07:27 37.0 C 70 20 123/72 94 08/30/19 07:21 77 18 94
[2019-08-30] MEDS: LEVALBUTEROL 1.25MG/0.5ML NEB NEB SCH (19:21)
[2019-08-30] MEDS: D5NSS + 20MEQ KCL 20 MEQ/1,000 ML BAG IV SCH (19:45)
[2019-08-30] MEDS: CLINDAMYCIN 600 MG in DEXTROSE 5% 50 ML IV SCH (19:54)
[2019-08-30] MEDS: MUPIROCIN 2% OINT 22 GM TUBE INTNAS SCH (20:03)
[2019-08-31] MEDS: LEVALBUTEROL 1.25MG/0.5ML NEB NEB SCH ×4 (01:05→19:45)
[2019-08-31] MEDS: CLINDAMYCIN 600 MG in DEXTROSE 5% 50 ML IV SCH ×3 (06:15→21:18)
[2019-08-31 07:22] LABS: Eosinophils # (auto) 0.01 K/uL (0-0.5); Eosinophils % (auto) 0.1 %; Hematocrit (blood only) 38.3 % (37-47); Hemoglobin 12.3 g/dL (12.0-16.0); Immature Granulocytes # (auto) 0.02 K/uL (0.00-0.02); Immature Granulocytes % (auto) 0.2 %; Lymphocytes # (auto) 2.94 K/uL (1.2-3.4); Lymphocytes % (auto) 26.3 %; Mean Corpuscular Hemoglobin 30.9 pg (25-34); Mean Corpuscular Hgb Conc 32.1 g/dL (32-36); Mean Corpuscular Volume 96.2 fL (80-100); Mean Platelet Volume 11.2 fL (7.4-10.4); Monocytes # (auto) 0.85 K/uL (0.11-0.59); Monocytes % (auto) 7.6 %; Neutrophils # (auto) 7.37 K/uL (1.4-6.5); Neutrophils % (auto) 65.8 %; Platelet Count 297 K/uL (130-400); RDW Coefficient of Variation 14.2 % (11.5-14.5); RDW Standard Deviation 50.7 fL (36.4-46.3); Red Blood Count 3.98 M/uL (4.2-5.4); White Blood Count 11.19 K/uL (4.8-10.8)
[2019-08-31 07:42] LABS: BUN Creatinine Ratio 21.1 (10-20); Calcium 9.5 mg/dl (8.5-10.1); Creatinine Clr Calc Pharmacy 55.4 ml/min; Est GFR (African American) 77.7; Est GFR (Non-African American) 67.1; Magnesium 2.5 mg/dl (1.8-2.4); Potassium 3.6 mmol/L (3.5-5.1)
[2019-08-31] MEDS: DOXYCYCLINE HYCLATE 100 MG in DEXTROSE 5% 100 ML IV SCH ×2 (08:25→19:13)
[2019-08-31] MEDS: MUPIROCIN 2% OINT 22 GM TUBE INTNAS SCH ×2 (08:26→19:14)
[2019-08-31] MEDS: D5NSS + 20MEQ KCL 20 MEQ/1,000 ML BAG IV SCH (12:17)
--- NOTE | 2019-08-31 12:54 | CT Scan Report ---
HEAD CT NONCONTRAST CT DOSE: 729.78 mGycm HISTORY: altered mental status, r/o cva TECHNIQUE: Multiaxial CT images of the head were performed without the use of intravenous contrast. A utomated exposure control was utilized for this study. A dose lowering technique was utilized adheri ng to the principles of ALARA. Comparison: Head CT 06/21/2009. Findings: Partial opacification of the left sphenoid sinus with an associated fluid level and bony sc lerosis. This favors acute on chronic sinusitis. The mastoid air cells are clear. A 2 cm subcutaneous cyst within the right posterior neck. This favors a sebaceous cyst. The calvarium and skull base are intact. There is no mass, hematoma, midline shift, acute infarct. White matter hypodensity is nonspe cific but suggestive of microvascular ischemic change. The ventricles and sulci demonstrate moderate atrophic changes. This has significantly progressed in the interval. Impression: 1. No acute infarct. 2. Significant progression of the atrophic changes within the supratentorial brain. This raises the p ossibility of underlying dementia. Clinical correlation recommended. 3. Acute on chronic left sphenoid sinusitis. ACT 112: Negative or not required by law. Electronically signed by: Jessee Glynn M.D. 08/31/2019 12:53 PM
--- NOTE | 2019-08-31 17:45 | Hospitalist Progress Note ---
Date of Service August 31, 2019 Assessment & Plan (1) Acute respiratory failure with hypoxia: likely secondary to aspiration event back to room air changed Ceftri to Clindamycin Speech Therapy recommends strict NPO Pulm consulted- recommend Nebs, pulmonary toilet CT head: No acute CVA, positive progressive atrophy noted TSH: Normal Discussed with [facility] staff, the patient has been noted to have coughing episodes with eating for the past 3 to 4 months Most likely culminating to an aspiration event, into hypoxia, leading to present hospitalization Unfortunately patient's severe dementia is progressing Discussed with patient's sister with regards to goals of care, possible palliat yasmine care consultation Continue n.p.o. status, IV fluids Rule out bacteremia Blood cultures 1 out of 2, positive cocci clusters However, patient is afebrile, no leukocytosis, negative procalcitonin Currently on clindamycin and statin, continue to follow 2. Lung mass, history of smoking - no intervention at this point after discussion with sister by Pulmonary service 3. History of impaired fasting glucose. - a1c pending The patient is on soft diet as per half-way and she needs help with feeding. 4. Ambulatory status is mostly bedbound. 5. Severe dementia, nonverbal. 6. History of bladder tumor status post surgery. 7. Deep venous thrombosis prophylaxis, sequential compression devices for now. 7. Disposition: Expect to discharge back to [facility] when stable. Social Service to help with discharge planning. Admission and Anticipated Discharge Date Admission Date: August 30, 2019 Subjective Follow-up for hypoxia Per RN patient was still coughing/choking with regular mouth care Still nonverbal, not following commands On exam the patient is seen, awake and alert, but not follow commands, nonverbal Does produce morning sounds intermittently, but not in distress or discomfort No other signs noted Review of Systems Review of Systems: Unobtainable due to cognitive status Physical Exam Physical Exam: General-awake, not in distress, breathing with no effort or accessory muscle use Eyes- anicteric Neck- no JVD Lungs-mild rhonchi anteriorly bilaterally Heart- normal rate, regular rhythm; no murmurs Abdomen- normal bowel sounds, nondistended, soft, nontender Extremities- no pretibial edema, no calf tenderness Neuro-difficult to assess due to cognitive status, but the patient is awake, alert, nonverbal, does not follow commands, no gross focal deficits noted Skin- warm & dry Results & Data Results & Data ([facility]) Vital Signs (Past 12 Hours) Vital Signs Temp Pulse Pulse Pulse Resp BP Pulse Ox 08/31/19 16:27 36.6 C 71 18 122/71 94 08/31/19 13:17 65 16 93 08/31/19 12:00 36.6 C 61 18 153/73 H 96 08/31/19 11:07 36.7 C 63 18 138/78 96 08/31/19 07:45 37.1 C 72 18 111/63 94 08/31/19 07:12 66 15 94 08/31/19 07:10 70
[2019-09-01] MEDS: LEVALBUTEROL 1.25MG/0.5ML NEB NEB SCH ×3 (00:05→13:28)
[2019-09-01] MEDS: D5NSS + 20MEQ KCL 20 MEQ/1,000 ML BAG IV SCH ×2 (06:32→21:10)
[2019-09-01] MEDS: CLINDAMYCIN 600 MG in DEXTROSE 5% 50 ML IV SCH ×3 (06:37→22:31)
[2019-09-01] MEDS: DOXYCYCLINE HYCLATE 100 MG in DEXTROSE 5% 100 ML IV SCH ×2 (07:57→20:24)
[2019-09-01] MEDS: MUPIROCIN 2% OINT 22 GM TUBE INTNAS SCH ×2 (07:57→20:24)
--- NOTE | 2019-09-01 09:20 | Palliative Care Consultation ---
Date of Consultation September 01, 2019 Assessment & Plan (1) Goals of care, counseling/discussion: -78 year old female patient with PMH severe dementia, nonverbal and total care, history of malignant neoplasm of bladder s/p surgery, history of dyspepsia and impaired fasting glucose, who presented t the ED from the [facility] where she resides for c/o hypoxia and SOB. [facility] that patient was 87% on room air. Upon arrival to hospital, patient was back to baseline and not hypoxic. She is back on room air. CT scan showed a 2.8cm spiculated RML nodule and some mucous plugging. Pulmonary consulted who spoke with patient's sister, Kimberly, on phone. Patient is nonverbal at baseline, does not recognize family, [facility]. She is not and has no children, has only one sister. Kimberly stressed that they do not wish to pursue further workup for this mass such as biopsy. Preference is to keep patient comfortable. Palliative care is now consulted to discuss goals of care. -Patient to be seen by palliative MD this afternoon. She is reportedly nonverbal, unable to participate in any conversation. -Spoke with patient's sister, Kimberly, on phone. Kimberly confirmed that patient was never and has no children. Patient has only one sister--Kimberly. -Patient has lived at [facility] for 6-7 years. [facility] actually offered hospice care about a year ago, but Kimberly didn't feel it was quite time. -We discussed findings during this hospitalization-- the lung mass. Kimberly again states that she does not want to pursue any workup for this. She is fine with continuing conservative treatment with abx while patient is hospitalized. -We discussed implementing hospice care at the [facility]-- Kimberly is agreeable. manager of information and attending physician aware. -FAST score 7c. Based on this alone, is hospice appropriate. PPS 30%. -Kimberly is well aware that if this is in fact cancer, that things will likely progress in the near future. We talked about what to expected-- increased weakness, lethargy, decreased oral intake, possible pain or SOB. She would want these things treated for comfort, no life-prolonging measures. (2) Right lower lobe pulmonary nodule: (3) Dementia: Supervising Physician Co-Signing Physician Notes Chart reviewed, patient seen and examined. Collaborated with SARAHI Tucker PE: Patient minimally responsive, did open her eyes briefly during exam HEENT: Gaze unfocused, opens eyes briefly, dry mucous membranes Respiratory: Clear breath sounds, unlabored CV: Regular rate, no edema Abdomen: No grimace with palpation Extremities: Partial contractions, in a semi- position, increased tone all extremities Neuro: Nonverbal, severe dementia. Patient has a POLST form in her room that states she is a DNR, comfort care. A trial of antibiotics and a trial of IV fluids are acceptable. Agree with above note, assessment and plan as per SARAHI Tucker plan is for patient to return to [facility] under hospice care. History of Present Illness Attending Physician: Kishor Menendez MD History of Present Illness This 78 year old female patient with PMH severe dementia, nonverbal and total care, history of malignant neoplasm of bladder s/p surgery, history of dyspepsia and impaired fasting glucose, who presented t the ED from the [facility] where she resides for c/o hypoxia and SOB. [facility] reported that patient was 87% on room air. Upon arrival to hospital, patient was back to baseline and not hypoxic. She is back on room air. CT scan showed a 2.8cm spiculated RML nodule and some mucous plugging. Pulmonary consulted who spoke w ith patient's sister, Kimberly, on phone. Patient is nonverbal at baseline, does not recognize family, [facility]. She is not and has no children, has only one sister. Kimberly stressed that they do not wish to pursue further workup for this mass such as biopsy. Preference is to keep patient comfortable. Palliative care is now consulted to discuss goals of care. Thank you kindly for this consult. Palliative care team will follow as needed. Allergies Allergy/AdvReac Type Severity Reaction Status Date / Time No Known Allergies Allergy Verified 08/29/19 22:07 Home Medications Home Medications Medication Instructions Recorded Confirmed Type acetaminophen 650 mg PO Q4H PRN MDD 3 GMS 08/29/19 08/29/19 History APAP/24 HOURS acetaminophen 650 mg ME Q6H PRN MDD 3 GMS 08/29/19 08/29/19 History APAP/24 HOURS bisacodyl [Dulcolax (bisacodyl)] 10 mg ME DIRECTED PRN 08/29/19 08/29/19 History ipratropium-albuterol 3 ml INHALATION Q6H PRN 08/29/19 08/29/19 History magnesium hydroxide [Milk Of 10 ml PO DAILY PRN 08/29/19 08/29/19 History Magnesia Concentrated] potassium chloride 20 meq PO DAILY 08/29/19 08/29/19 History sennosides [senna] 17.2 mg PO DAILY 08/29/19 08/29/19 History sodium phosphates [Fleet Enema] 118 ml ME DIRECTED PRN 08/29/19 08/29/19 History Patient History Medical History (Updated 09/01/19 @ 09:15 by SARAHI Brambila) Alzheimers disease Anxiety Bladder cancer Dementia History of tobacco abuse Osteoarthritis Family History (Updated 08/30/19 @ 17:08 by Jakob Kruger PA-C) Other Medical history non-contributory Social History (Updated 08/30/19 @ 17:15 by Jakob Kruger PA-C) Communication Ability: Unable Communication Ability Comment: Nonverbal for at least the past year secondary to Alzheimer's disease Roller Staker Required: No marital status: Single Current Living Situation: Prison current occupational status: retired current occupation: Retired from [employer] services at [employer] Smoking Status: Former smoker Tobacco Type: cigarettes ; Age Started Using Tobacco: 17 ; Age Quit Using Tobacco: 74 ; packs per day: 1 ; Number of Years Since Quit: 4 ; Hx Alcohol Use: No Hx Substance Use: No Results & Data Vital Signs (Past 12 Hours) Vital Signs Temp Pulse Pulse Resp BP Pulse Ox 09/01/19 07:58 36.8 C 66 18 167/91 H 98 09/01/19 07:25 66 16 98 09/01/19 03:37 37 C 73 18 153/86 H 94 09/01/19 02:47 73 09/01/19 00:06 72 18 94 08/31/19 23:37 36.8 C 76 18 158/82 H 94 Coding Level of Care Code 67332 Inpt Consult Level 3 Diagnoses Goals of care, counseling/discussion Z71.89 Right lower lobe pulmonary nodule R91.1 Dementia F03.90 Time Spent (min) 70 Time Spent Midlevel A total of 70 minutes spent by this VAT WASHER in reviewing chart, speaking with atte nding and palliative MDs, talking with case management and speaking with family re: condition, goals of care and hospice.
[2019-09-01] MEDS ORDERED: LEVALBUTEROL 1.25MG/0.5ML NEB NEB PRN (19:00)
--- NOTE | 2019-09-01 20:37 | Hospitalist Progress Note ---
Date of Service September 01, 2019 Assessment & Plan (1) Acute respiratory failure with hypoxia: likely secondary to aspiration event Possible aspiration pneumonia back to room air changed Ceftri to Clindamycin Speech Therapy recommends strict NPO Pulm consulted- recommend Nebs, pulmonary toilet CT head: No acute CVA, positive progressive atrophy noted TSH: Normal Discussed with [facility] staff, the patient has been noted to have coughing episodes with eating for the past 3 to 4 months Most likely culminating to an aspiration event, into hypoxia, leading to present hospitalization Unfortunately patient's severe dementia is progressing Discussed with patient's sister with regards to goals of care, possible palliative care consultation Continue n.p.o. status, IV fluids September 01, 2019 Patient stable, on room air Still on strict n.p.o., IV fluids, continue clindamycin Palliative care consulted, discussed with family, and to return to [facility] facility with hospice services Rule out bacteremia Blood cultures 1 out of 2, coag negative staph not lugdunensis Repeat blood cultures pending However, patient is afebrile, no leukocytosis, negative procalcitonin Currently on clindamycin and statin, continue to follow 2. Lung mass, history of smoking - no intervention at this point after discussion with sister by Pulmonary service 3. History of impaired fasting glucose. - a1c pending The patient is on soft diet as per senior care and she needs help with feeding. 4. Ambulatory status is mostly bedbound. 5. Severe dementia, nonverbal. 6. History of bladder tumor status post surgery. 7. Deep venous thrombosis prophylaxis, sequential compression devices for now. 7. Disposition: Expect to discharge back to [facility] when stable, with hospice service Social Service to help with discharge planning. Admission and Anticipated Discharge Date Admission Date: August 30, 2019 Subjective Follow-up for hypoxia, possible aspiration Seen resting in bed, not in distress Eyes mostly closed, occasionally twitches with verbal stimuli No issues per event staff Review of Systems Review of Systems: All systems reviewed & are unremarkable except as noted in HPI & below Physical Exam Physical Exam: General-sleeping, breathing with no effort or accessory muscle use Neck- no JVD Lungs- clear breath sounds bilaterally, no crackles Heart- normal rate, regular rhythm; no murmurs Abdomen- normal bowel sounds, nondistended, soft, nontender Extremities- no pretibial edema, no calf tenderness Neuro-sleeping Skin- warm & dry Results & Data Results & Data ([facility]) Vital Signs (Past 12 Hours) Vital Signs Temp Pulse Pulse Resp BP Pulse Ox 09/01/19 19:00 36.6 C 61 20 141/88 H 97 09/01/19 16:38 90 09/01/19 15:01 36.8 C 85 18 159/84 H 94 09/01/19 13:28 78 16 95 09/01/19 11:27 36.6 C 67 18 128/75 93 09/01/19 09:00 62 Laboratory Results Laboratory Results - last 24 hr 09/01/19 09/01/19 06:12 11:54 POC Glucose 92 105 H
[2019-09-02] MEDS: CLINDAMYCIN 600 MG in DEXTROSE 5% 50 ML IV SCH ×2 (05:52→13:44)
[2019-09-02] MEDS: MUPIROCIN 2% OINT 22 GM TUBE INTNAS SCH (08:00)
--- NOTE | 2019-09-02 13:29 | Hospitalist Progress Note ---
Date of Service September 02, 2019 Assessment & Plan (1) Acute respiratory failure with hypoxia: likely secondary to aspiration event, Mucous plug Possible aspiration pneumonia Severe dementia CT chest: 1. No evidence of pulmonary embolus. 2. Solid spiculated 2.8 cm right middle lobe mass highly concerning for primary bronchogenic neoplasm. Tissue sampling advised. 3. Moderate emphysema with mucous plugging in the right lower lobe and to a lesser extent the right middle lobe. CT head: No acute CVA, positive progressive atrophy noted TSH: Normal Discussed with [facility] staff, the patient has been noted to have coughing episodes with eating for the past 3 to 4 months Most likely culminating to an aspiration event, into hypoxia, leading to present hospitalization Patient was able to be weaned off from oxygen supplement She received IV ceftriaxone, then transitioned to IV clindamycin, she has received 4 days total of antibiotic therapy Pulmonary service consulted, recommended nebulizer treatment, pulmonary toilet Speech therapy also was consulted, patient deemed to be very high risk for aspiration, recommended strict n.p.o. secondary to cognitive status She has remained stable from pulmonary standpoint since admission Unfortunately patient's severe dementia has progressed significantly Discussed with patient's sister with regards to goals of care, including palliative care consultation and she is agreeable with the plan Palliative care service discussed with patient's sister, plan is to proceed with home with hospice services at the [facility] Bacteremia ruled out Blood cultures 1 out of 2, coag negative staph not lugdunensis Repeat blood cultures negative x48 hours Patient is afebrile, no leukocytosis, negative procalcitonin Lung mass, history of smoking - no intervention at this point after discussion with sister by Pulmonary service History of impaired fasting glucose. - a1c is 6.1 History of bladder tumor status post surgery. Admission and Anticipated Discharge Date Admission Date: August 30, 2019 Subjective Follow-up for hypoxic event, possible aspiration Discussed with RN Daylin and NALINI No acute issues Patient remains comfortable overall On room air, no shortness of breath noted Remains nonverbal, does not follow commands Discussed with case management, patient is set up to return to [facility] and to transition to hospice Review of Systems Review of Systems: All systems reviewed & are unremarkable except as noted in HPI & below and Unobtainable due to cognitive status Physical Exam Physical Exam: General-sleeping, appears weak, opens eyes with verbal stimuli, breathing with no effort or accessory muscle use Nonverbal Not following commands Eyes- anicteric Neck- no JVD Lungs- clear breath sounds bilaterally, crackles, no wheezing bilaterally Heart- normal rate, regular rhythm; no murmurs Abdomen- normal bowel sounds, nondistended, soft, nontender Extremities- no pretibial edema, no calf tenderness Neuro-appears drowsy, no new gross focal neurologic deficits Skin- warm & dry Results & Data Results & Data ([facility]) Vital Signs (Past 12 Hours) Vital Signs Temp Pulse Pulse Resp BP Pulse Ox 09/02/19 12:01 36.8 C 66 18 122/81 96 09/02/19 07:55 36.4 C L 69 20 114/75 94 09/02/19 07:00 73 09/02/19 05:16 69
--- NOTE | 2019-09-02 13:56 | Discharge Summary ---
Date of Service September 02, 2019 Admission HPI Per Admitting Provider HISTORY OF PRESENT ILLNESS: A 78-year-old female, [facility] resident, with past medical history significant for severe dementia, nonverbal, history of malignant neoplasm of bladder, status post surgery, history of dyspepsia and impaired fasting glucose, was brought in because of shortness of breath. Apparently, the patient was doing okay until this episode happened when after eating supper she was found in the room having respiratory distress and tachycardia. She was diaphoretic and oxygen sat at 87%. She was placed on nasal cannula and was sent in here.There was no fever, no chills, no cough until this episode happened. No nausea, no vomiting, no diarrhea. In the ER when she came in, she seemed back to her baseline and she is saturating fine. Currently, all the labs are okay. CAT scan done in the ER, preliminary report shows emphysema and lower lobe rhonchi, bibasilar atelectasis and 2.4 cm right middle lobe nodule concerning for malignancy.She has a history of smoking as per records. Currently resting comfortably and hemodynamically stable. Not able to get any history from the patient. The patient is sleeping, not arousable and also she is nonverbal. History got from ER and also talked to the [facility]. Admission Exam Per Admitting Provider VITAL SIGNS: Temperature 36.8, pulse 67, respiratory rate 14, blood pressure 134/69, oxygen 100% on room air. HEENT: Atraumatic. She is sleeping and not able to arise. NECK: No neck masses seen. CARDIOVASCULAR: S1, S2 heard, regular rate and rhythm, no murmur, no gallop. RESPIRATORY SYSTEM: Normal AP diameter. No accessory muscle use. Could not hear any wheezing or crackles. ABDOMEN: Soft, bowel sounds present. No distention. CENTRAL NERVOUS SYSTEM: Currently drowsy, nonverbal. EXTREMITIES: No edema, no erythema seen. Principal Diagnosis HYPOXIA LIKELY SECONDARY TO ASPIRATION EVENT, POSSIBLE ASPIRATION PNEUMONITIS, MUCUS PLUG; SEVERE DEMENTIA Discharge Exam General-sleeping, appears weak, opens eyes with verbal stimuli, breathing with no effort or accessory muscle use Nonverbal Not following commands Eyes- anicteric Neck- no JVD Lungs- clear breath sounds bilaterally, crackles, no wheezing bilaterally Heart- normal rate, regular rhythm; no murmurs Abdomen- normal bowel sounds, nondistended, soft, nontender Extremities- no pretibial edema, no calf tenderness Neuro-appears drowsy, no new gross focal neurologic deficits Skin- warm & dry Discharge Data Allergies Allergy/AdvReac Type Severity Reaction Status Date / Time No Known Allergies Allergy Verified 08/29/19 22:07 Consultations 08/30/19 04:00 ED Decision to Admit Stat 08/30/19 05:39 Consult Case Management - Discharge Planning Routine 08/30/19 08:00 Consult Pulmonology Routine 08/31/19 17:56 Consult Palliative Care Routine Ordered Studies 08/29/19 23:09 CT angio chest PE protocol Urgent 1. No evidence of pulmonary embolus. 2. Solid spiculated 2.8 cm right middle lobe mass highly concerning for primary bronchogenic neoplasm. Tissue sampling advised. 3. Moderate emphysema with mucous plugging in the right lower lobe and to a lesser extent the right middle lobe. 08/31/19 11:58 CT head/brain wo con Routine 1. No acute infarct. 2. Significant progression of the atrophic changes within the supratentorial brain. This raises the possibility of underlying dementia. Clinical correlation recommended. 3. Acute on chronic left sphenoid sinusitis. Hospital Course (1) Acute respiratory failure with hypoxia: likely secondary to aspiration event, Mucous plug Possible aspiration pneumonia Severe dementia CT chest: 1. No evidence of pulmonary embolus. 2. Solid spiculated 2.8 cm right middle lobe mass highly concerning for primary bronchogenic neoplasm. Tissue sampling advised. 3. Moderate emphysema with mucous plugging in the right lower lobe and to a lesser extent the right middle lobe. CT head: No acute CVA, positive progressive atrophy noted TSH: Normal Discussed with [facility] staff, the patient has been noted to have coughing episodes with eating for the past 3 to 4 months Most likely culminating to an aspiration event, into hypoxia, leading to present hospitalization Patient was able to be weaned off from oxygen supplement on hospital day 1 She received IV ceftriaxone, then transitioned to IV clindamycin, she has received 4 days total of antibiotic therapy, IV fluids Pulmonary service consulted, recommended nebulizer treatment, pulmonary toilet Speech therapy also was consulted, patient deemed to be very high risk for aspiration, recommended strict n.p.o. secondary to cognitive status She has remained stable from pulmonary standpoint since admission Unfortunately patient's severe dementia has progressed significantly to the point where she is a very high aspiration risk with feeding and medication intake Discussed with patient's sister with regards to goals of care, including palliative care consultation and she is agreeable with the plan Palliative care service discussed with patient's sister, plan is to proceed with home with hospice services at the residential facility Bacteremia ruled out Blood cultures 1 out of 2, coag negative staph not lugdunensis Repeat blood cultures negative x48 hours Patient is afebrile, no leukocytosis, negative procalcitonin Lung mass, history of smoking - no intervention at this point after discussion with sister by Pulmonary service History of impaired fasting glucose. - a1c is 6.1 History of bladder tumor status post surgery. Total Time Total Time Spent Total Time Spent (In Minutes): 45 minutes Discharge Plan Discharge Items Patient Disposition: Hospice - Medical Facility Reason For Visit: SHORTNESS OF BREATH Discharge Diagnosis: Possible aspiration event secondary to severe dysphagia, severe dementia Condition on Discharge: Fair Activity: Resume your previous activity Non-emergency contact: Primary Care Provider Call non-emergency contact if: you have any medication questions Follow-up/Referrals: [facility] [Primary Care Provider] - Diet: Other - See Diet Comment Diet Comment: STRICT N.P.O., no food or drinks, no medications Addtl Attending Provider Instructions: Transition to hospice care. Please refer to accompanying hospital discharge summary for further details. Pending Studies at Discharge: No Stand-Alone Forms: My [facility] Skilled Items Patient informed of condition?: No DNR: Yes Discharge Level of Care: Skilled Communicable Disease: No Discharge Prognosis: Deteriorating Lines: None Urinary Catheter: No Medications and DC Order Prescriptions: New mupirocin 2 % Ointment 1 applic intranasal BID@0800,1999 2 Days Qty: 30 RF: 0 Continued acetaminophen 650 mg Suppository 650 mg WI Q6H MDD 3 GMS APAP/24 HOURS PRN (Reason: Fever) RF: 0 ipratropium-albuterol 0.5 mg-3 mg(2.5 mg base)/3 mL Solution For Nebulization 3 ml INHALATION Q6H PRN (Reason: Cough/Congestion) RF: 0 Discontinued sennosides [senna] 8.6 mg Tablet 17.2 mg PO DAILY RF: 0 potassium chloride 10 mEq capsule, extended release 20 meq PO DAILY RF: 0 acetaminophen 325 mg Tablet 650 mg PO Q4H MDD 3 GMS APAP/24 HOURS PRN (Reason: Fever Or Pain) RF: 0 bisacodyl [Dulcolax (bisacodyl)] 10 mg Suppository 10 mg WI DIRECTED PRN (Reason: Constipation) RF: 0 Fleet Enema 19-7 gram/118 mL Enema 118 ml WI DIRECTED PRN (Reason: Constipation) RF: 0 magnesium hydroxide [Milk Of Magnesia Concentrated] 2,400 mg/10 mL Suspension 10 ml PO DAILY PRN (Reason: Constipation) RF: 0 Discharge Orders: Discharge Order (Routine); Ordered 09/02/19 Ordered By: Kishor Menendez Admission Data Admit Date/Time: 08/30/19 03:51 Attending Provider: Kishor Menendez Admit Provider: Lane Gil [facility] Other Providers: Lane Gil ; Bola Lozano ; Zach Hernandez ; Jesika Orr
[2019-09-02] MEDS: D5NSS + 20MEQ KCL 20 MEQ/1,000 ML BAG IV SCH (14:33)
--- NOTE | 2019-09-18 12:45 | Coding Query ---
CODING QUERY To promote full compliance with coding requirements relating to patient care, provider participation is requested in all cases of professional fee coder uncertainty. Please assist us with the question(s) below: Coding Question(s): Please clarify if aspiration PNX was present on admission. Physician's Response(s): Aspiration PNA present on admission Thank you Genet Love Principal Diagnosis: "that condition established after study, to be chiefly responsible for occasioning the admission of the patient to the hospital for care." Co-Existing Principal Diagnosis: "when two or more diagnoses equally meet the criteria for principal diagnosis as determined by the circumstances of admission, diagnostic work up, and/or therapy provided, and the Alphabetic Index, Tabular List, or another coding guideline does not provide sequencing direction, any one of the diagnoses may be sequenced first." "When the physician has documented what appears to be a current diagnosis in the body of the record, but has not included the diagnosis in the final diagnostic statement, the physician should be asked whether the diagnosis should be added." (Source Coding [facility] 2 QTR90. p3-4) ARIANA
== END 2019-09-02 14:41 | disposition hospice, inpatient (51) | DRG 177 ==
LOC: ED 20:55 → SUATTDRO 08-30 03:51 → 2N 08-30 03:51 → 2S 08-30 09:47 → 2W 08-30 13:08